=== PATIENT | female | born 1940 | race Caucasian/White ===

== ENCOUNTER 2023-04-20 10:46 | Outpatient (OUT) | payer MEDICARE, SELFPAY ==
[2023-04-20 11:38] LABS: Basophils Percent Auto 0.6 % (0.2-2.0); Eosinophils Absolute Auto 0.2 10^3/uL (0.0-0.7); Eosinophils Percent Auto 2.5 % (0.9-7.0); Hematocrit 35.8 % (36.0-48.0); Hemoglobin 11.2 g/dL (12.0-16.0); Immature Granulocytes Abs Auto 0.09 10^3/uL (0.00-0.03); Immature Granulocytes Pct Auto 1.3 % (0.0-0.5); Lymphocytes Absolute Auto 2.1 10^3/uL (1.2-3.8); Lymphocytes Percent Auto 31.2 % (20.5-60.0); Mean Corpuscular HGB Conc 31.3 g/dL (29.9-35.2); Mean Corpuscular Hemoglobin 30.5 pg (26.7-34.0); Mean Corpuscular Volume 97.5 fL (81.0-99.0); Mean Platelet Volume 9.5 fL (9.5-13.5); Monocytes Absolute Auto 0.4 10^3/uL (0.3-0.8); Neutrophils Percent Auto 58.4 % (43.0-75.0); Platelet Count 167 10^3/uL (150-450); Red Blood Count 3.67 10^6/uL (4.20-5.40); Red Cell Distribution Width 15.6 % (11.0-15.0); White Blood Count 6.8 10^3/uL (4.0-11.0)
[2023-04-20 11:46] LABS: Bilirubin Urine NEGATIVE (NEGATIVE); Blood Urine TRACE-I (NEGATIVE); Clarity Urine CLEAR (CLEAR); Color Urine LT. YELLOW (YELLOW); Glucose Urine UA NEGATIVE (NEGATIVE); Ketones Urine NEGATIVE (NEGATIVE); Leukocyte Esterase Urine NEGATIVE (NEGATIVE); Nitrite Urine NEGATIVE (NEGATIVE); Protein Urine NEGATIVE (NEG/TRACE); Urobilinogen Urine 0.2 EU/dL (0.2-1.0); pH Urine 5.5 (5.0-9.0)
[2023-04-20 11:52] LABS: Microalbumin Urine Random <1.3 mg/dL (<=30.0)
[2023-04-20 11:54] LABS: Estimated Average Glucose 120 mg/dL; Glycohemoglobin A1C 5.8 % (4.5-6.2)
[2023-04-20 12:01] LABS: Urine Microscopic Indicated ALREADY ORDERED
[2023-04-20 12:21] LABS: Bacteria Urine TRACE #/HPF (NONE SEEN); Mucus Urine NONE SEEN (NONE SEEN); RBC Urine 0-2 #/HPF (0-2)
[2023-04-20 12:23] LABS: Cast Seen? NONE SEEN #/LPF (NONE SEEN); Crystals Seen? None Seen #/HPF (None Seen); Squamous Epithelial Cell Urine RARE #/LPF (NONE/RARE); Urine Culture Indicated NO
[2023-04-20 12:28] LABS: Free T4 1.37 ng/dL (0.76-1.46)
[2023-04-20 12:54] LABS: Alanine Aminotransferase 9 U/L (14-59); Albumin Globulin Ratio 1.1; Albumin Level 4.1 g/dL (3.4-5.0); Alkaline Phosphatase 97 U/L (46-116); Anion Gap 13.7; Aspartate Amino Transferase 22 U/L (15-37); BUN Creatinine Ratio 28.3; Bilirubin Total 0.6 mg/dL (0.2-1.0); Calcium 9.5 mg/dL (8.5-10.1); Carbon Dioxide 27.3 mmol/L (21.0-32.0); Chloride 104 mmol/L (98-107); Chol HDL Ratio 4.2; Cholesterol 187 mg/dL (<=200); Estimated GFR (African America 36 (>=60); Estimated GFR (Non-African Ame 30 (>=60); Globulin 3.7 g/dL; Glucose 149 mg/dL (74-106); HDL Cholesterol 45 mg/dL (40-60); Sodium 141 mmol/L (136-145); Thyroid Stimulating Hormone 0.489 uIU/mL (0.358-3.740); Total Protein 7.8 g/dL (6.4-8.2); Triglycerides 258 mg/dL (<=150); VLDL CHOLESTEROL 51.6 mg/dL
== END 2023-04-20 10:47 | disposition home or self-care (01) ==
PROVIDERS: PCP Nurse Practitioner; Visit Provider Nurse Practitioner
DX: E03.9 Hypothyroidism, unspecified (principal); I12.9 Hypertensive chronic kidney disease with stage 1 through stage 4 chronic kidney disease, or unspecified chronic kidney disease; N18.4 Chronic kidney disease, stage 4 (severe); E11.22 Type 2 diabetes mellitus with diabetic chronic kidney disease; M85.80 Other specified disorders of bone density and structure, unspecified site; D64.9 Anemia, unspecified; E78.5 Hyperlipidemia, unspecified
CPT/HCPCS: 36415; 80053; 80061; 81001; 82043; 82306; 82728; 83036; 83540; 84439; 84443; 85025

== ENCOUNTER 2023-05-26 12:55 | Outpatient (OUT) | payer MEDICARE, SELFPAY | END 2023-05-26 12:56 | disposition home or self-care (01) | LOC: WC 12:55 | PROVIDERS: PCP Nurse Practitioner; Visit Provider Physician Assistant | DX: I87.311 Chronic venous hypertension (idiopathic) with ulcer of right lower extremity (principal); L97.811 Non-pressure chronic ulcer of other part of right lower leg limited to breakdown of skin; R60.0 Localized edema | CPT/HCPCS: 17250 ==

== ENCOUNTER 2023-06-20 12:32 | Outpatient (OUT) | payer MEDICARE, SELFPAY ==
--- NOTE | 2023-06-20 13:28 | CA_ITS ---
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 PVR waveforms with normal upstroke, amplitude and dicrotic notch Right: - no significant pressure gradient between cuffs - normal NICHOLAS Left: - significant pressure gradient between the calf and DP cuff - normal NICHOLAS Impression: - normal arterial evaluation of the lower extremities without hemodynamic impairment of the B/L lower extremities at rest. (right NICHOLAS 1.21, left NICHOLAS 1.07) - decreased B/L TBI of unknown significance, clinical correlation advised. Electronically Signed On 06-21-2023 7:18:30 EST by OVI GREEN
== END 2023-06-20 12:33 | disposition home or self-care (01) ==
LOC: CARD 12:33
PROVIDERS: PCP Nurse Practitioner; Visit Provider Physician Assistant
DX: R09.89 Other specified symptoms and signs involving the circulatory and respiratory systems (principal)
CPT/HCPCS: 93923

== ENCOUNTER 2023-06-23 10:11 | Outpatient (OUT) | payer MEDICARE, SELFPAY | END 2023-06-23 10:12 | disposition home or self-care (01) | LOC: WC 10:12 | PROVIDERS: PCP Nurse Practitioner; Visit Provider Physician Assistant | DX: I87.311 Chronic venous hypertension (idiopathic) with ulcer of right lower extremity (principal); L97.811 Non-pressure chronic ulcer of other part of right lower leg limited to breakdown of skin | CPT/HCPCS: G0463 ==

== ENCOUNTER 2023-07-21 13:06 | Outpatient (RCR) | payer MEDICARE, SELFPAY | END 2023-07-22 17:01 | disposition home or self-care (01) | LOC: OT 13:06 | PROVIDERS: PCP Nurse Practitioner; Visit Provider Physician Assistant | DX: I89.0 Lymphedema, not elsewhere classified (principal); I87.8 Other specified disorders of veins | CPT/HCPCS: 97166; 97530 ==

== ENCOUNTER 2023-07-25 10:22 | Outpatient (OUT) | payer MEDICARE, SELFPAY | END 2023-07-25 10:23 | disposition home or self-care (01) | LOC: WC 10:22 | PROVIDERS: PCP Nurse Practitioner; Visit Provider Physician Assistant | DX: E11.21 Type 2 diabetes mellitus with diabetic nephropathy (principal); E11.65 Type 2 diabetes mellitus with hyperglycemia; L60.9 Nail disorder, unspecified | CPT/HCPCS: 11721 ==

== ENCOUNTER 2023-10-19 14:38 | Outpatient (OUT) | payer MEDICARE, SELFPAY | END 2023-10-19 14:39 | disposition home or self-care (01) | LOC: WC 14:38 | PROVIDERS: PCP Nurse Practitioner; Visit Provider Podiatrist Foot & Ankle Surgery | DX: E11.21 Type 2 diabetes mellitus with diabetic nephropathy (principal); E11.65 Type 2 diabetes mellitus with hyperglycemia; L60.9 Nail disorder, unspecified | CPT/HCPCS: 11721 ==